=== PATIENT | female | born 1965 | race Caucasian/White ===

== ENCOUNTER 2019-11-28 00:34 | Outpatient (NON) | payer SELFPAY ==
[2019-11-29 00:19] LABS: SARS-CoV-2 RNA PCR Negative
== END 2019-11-28 00:35 ==
PROVIDERS: PCP Family Medicine; Visit Provider Family Medicine
DX: J02.9 Acute pharyngitis, unspecified (principal); Z20.828 Contact with and (suspected) exposure to other viral communicable diseases
CPT/HCPCS: 87635; C9803; U0003

== ENCOUNTER 2021-02-21 13:30 | Outpatient (CLI) | payer OTHER, SELFPAY ==
--- NOTE | ~2021-02-21 | MMUS_ITS ---
EXAMINATION: MM diagnostic [place] BI w jay, US breast RT limited HISTORY: Follow-up right breast asymmetry TECHNIQUE: Additional 3-D tomosynthesis images of the breasts were performed and synthetic 2-D images were generated. CAD analysis was submitted and interpreted. High resolution Limited right breast ult rasound was performed. COMPARISON: Comparison to multiple prior studies sequentially, with oldest reviewed study dated 02/26. BREAST PARENCHYMAL COMPOSITION: The breasts are heterogenously dense, which may obscure small masses. FINDINGS: MAMMOGRAPHIC FINDINGS: There are no suspicious masses, calcifications or architectural distortion in either breast to sugges t malignancy. ULTRASOUND: Limited right breast ultrasound: In the subareolar location of the right breast there is a cyst measu ring 8 mm which may represent a simple cyst or focally dilated duct. No sonographic evidence for hemal gnancy. IMPRESSION: 1. No evidence for malignancy in either breast. 2. Routine yearly screening mammogram and regular clinical breast examination are recommended. BI-RADS Category 2: Benign finding(s). Reviewed, dictated and finalized at location A. IMPRESSION: 1. No evidence for malignancy in either breast. 2. Routine yearly screening mammogram and regular clinical breast examination a re recommended. BI-RADS Category 2: Benign finding(s).
== END 2021-02-21 13:31 | disposition home or self-care (01) ==
LOC: ANHIMG 13:33
PROVIDERS: PCP Family Medicine; Visit Provider Surgery
DX: R92.8 Other abnormal and inconclusive findings on diagnostic imaging of breast (principal)
CPT/HCPCS: 76642; 77062; 77066; G0279

== ENCOUNTER 2021-05-09 13:08 | Outpatient (CLI) | payer OTHER, SELFPAY ==
--- NOTE | ~2021-05-09 | DEXA_ITS ---
Bone Density Report Name: MICHELLE SHARP Age: 56 Sex: Female Ethnicity: White Date of : 1965 Indication: postmenopausal; Referring Provider: JIMMY ROBERT Study: Bone densitometry was performed. Exam Date: May 09, 2021 Accession number: [id number] Bone Density: Region BMD T-score Z-score Classification AP Spine (L1-L4) 1.039 -0.1 0.9 Normal Femoral Neck (Left) 0.656 -1.7 -0.7 Osteopenia Total Hip (Left) 0.864 -0.6 0.0 Normal Total Hip Bilateral Avg 0.880 -0.5 0.2 Normal Femoral Neck (Right) 0.705 -1.3 -0.3 Osteopenia Total Hip (Right) 0.895 -0.4 0.3 Normal World Health Organization criteria for BMD impression classify patients as: Normal (T-score at or above -1.0), Osteopenia (T-score between -1.0 and -2.5), or Osteoporosis (T-score at or below -2.5). 10-year Fracture Risk(1): Major Osteoporotic Fracture 6.3% Hip Fracture 0.6% Reported Risk Factors: [place] (), Neck BMD=0.656, BMI=21.6 (1) FRAX(R) Version 3.08. Fracture probability calculated for an untreated patient. Fracture probability may be lower if the patient has received treatment. Clinical Information Provided by Patient: Has used the following medications: HRT (i.e. estrogen/hormone therapy), Vitamin D Patient maximum height was 55.5 Menopause Age: 54 Does not regularly consume dairy products Drinks caffeinated beverages Onset of menses at age 15 Number of children 3 Impression: The patient has low bone mass, based on the Left Femoral Neck T-score. The patient has an estimated ten-year risk of hip fracture of 0.6% and an estimated ten-year risk of major fracture of 6.3%, based on the WHO FRAX algorithm. Discussion: BONE DENSITY IS LOW AT ONE OR MORE SKELETAL SITES. This patient's lowest T-score is low at one or more skeletal sites. It meets the World Health Organization's (WHO) criteria for ?low bone mass? (T-score between -1.0 and -2.5). The patient's 10-year risk of fracture as calculated by FRAX is less than the threshold where pharmacological therapy is recommended by the National Osteoporosis Foundation (NOF). However, all treatment decisions require clinical judgment and consideration of individual patient factors, including patient preferences, comorbidities, previous drug use, risk factors not captured in the FRAX model (e.g., frailty, falls, vitamin D deficiency, increased bone turnover, interval significant decline in bone density) and possible under or overestimation of fracture risk by FRAX. The patient should follow a healthful lifestyle (good nutrition with adequate calcium and vitamin D, and appropriate weight-bearing exercise). Follow-Up: Consider repeating this study in 2 to 3 years to reassess this patient's status, or sooner if there is some new clinical indication. Reported by: Gabriela
== END 2021-05-09 13:09 | disposition home or self-care (01) ==
PROVIDERS: PCP Family Medicine; Visit Provider Obstetrics & Gynecology Gynecology
DX: Z78.0 Asymptomatic menopausal state (principal); M85.852 Other specified disorders of bone density and structure, left thigh; M85.851 Other specified disorders of bone density and structure, right thigh
CPT/HCPCS: 77080

== ENCOUNTER → 2022-04-27 10:04 | Outpatient (CLI) | payer OTHER, SELFPAY ==
--- NOTE | ~2022-04-27 | US_ITS ---
US renal BI DATE: 04/27/2022 10:25 INDICATION: Left flank colicky pain TECHNIQUE: Real-time imaging of kidneys and urinary bladder COMPARISON: None FINDINGS: The right kidney measures 10.7 cm length, the left 12.6 cm cyst. No renal mass lesion or hy dronephrosis. The urinary bladder is unremarkable. IMPRESSION: No significant abnormality Reviewed, dictated and finalized at Location A. Reviewed, dictated and finalized at location B. 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
== END ==
PROVIDERS: PCP Family Medicine; Visit Provider Family Medicine
DX: R10.9 Unspecified abdominal pain (principal)
CPT/HCPCS: 76775

== ENCOUNTER 2022-08-08 15:49 | Outpatient (CLI) | payer OTHER, SELFPAY ==
--- NOTE | ~2022-08-08 | MM_ITS ---
EXAMINATION: MM screening [place] BI w jay HISTORY: Screening mammogram TECHNIQUE: Craniocaudal and mediolateral oblique 3-D tomosynthesis images were obtained and synthetic 2-D images were generated. CAD analysis was submitted and interpreted. COMPARISON: 02/21/2021 diagnostic bilateral mammogram and limited right breast ultrasound 05/22/2019 bilateral screening mammogram BREAST PARENCHYMAL COMPOSITION: There are scattered areas of fibroglandular density. FINDINGS: There is no evidence of suspicious mass, calcification, or architectural distortion to sugg est malignancy in either breast. There has been no suspicious interval change. IMPRESSION: 1. No mammographic evidence of malignancy. 2. Recommend routine screening mammography in one year. BI-RADS Category 1: Negative Reviewed, dictated and finalized at location A.
== END 2022-08-08 15:50 | disposition home or self-care (01) ==
PROVIDERS: PCP Family Medicine; Visit Provider Obstetrics & Gynecology Gynecology
DX: Z12.31 Encounter for screening mammogram for malignant neoplasm of breast (principal)
CPT/HCPCS: 77063; 77067

== ENCOUNTER 2023-10-02 16:04 | Outpatient (CLI) | payer OTHER, SELFPAY ==
--- NOTE | ~2023-10-02 | MM_ITS ---
EXAMINATION: MM screening [place] BI w jay HISTORY: Screening mammogram TECHNIQUE: Craniocaudal and mediolateral oblique 3-D tomosynthesis images were obtained and synthetic 2-D images were generated. CAD analysis was submitted and interpreted. COMPARISON: 08/08/2022 bilateral screening mammogram 02/21/2021 diagnostic bilateral mammogram and limited right breast ultrasound 05/22/2019 [facility] bilateral screening mammogram BREAST PARENCHYMAL COMPOSITION: There are scattered areas of fibroglandular density. FINDINGS: Occasional benign calcifications. There is no evidence of suspicious mass, calcification, o r architectural distortion to suggest malignancy in either breast. There has been no suspicious inter misti change. IMPRESSION: 1. No mammographic evidence of malignancy. 2. Recommend routine screening mammography in one year. BI-RADS Category 2: Benign finding(s). Reviewed, dictated and finalized at location B.
== END 2023-10-02 16:05 ==
PROVIDERS: PCP Obstetrics & Gynecology Gynecology; Visit Provider Obstetrics & Gynecology Gynecology
DX: Z12.31 Encounter for screening mammogram for malignant neoplasm of breast (principal)
CPT/HCPCS: 77063; 77067

== ENCOUNTER 2024-10-06 14:15 | Outpatient (CLI) | payer OTHER, SELFPAY ==
--- NOTE | ~2024-10-06 | MM_ITS ---
EXAMINATION: MM screening [facility] BI w jay HISTORY: Screening mammogram TECHNIQUE: Craniocaudal and mediolateral oblique 3-D tomosynthesis images were obtained and synthetic 2-D images were generated. CAD analysis was submitted and interpreted. COMPARISON: 10/02/2023, 08/08/2022, 02/21/2021 BREAST PARENCHYMAL COMPOSITION:Not Dense. There are scattered areas of fibroglandular density. FINDINGS: No suspicious mass, calcification, or architectural distortion are identified in either janell ast to suggest malignancy. There has been no suspicious interval change. IMPRESSION: No mammographic evidence of malignancy. Recommend routine screening mammography in one year. BI-RADS Category 1: Negative Reviewed, dictated and finalized at location .
--- NOTE | ~2024-10-06 | DEXA_ITS ---
Bone Density Report Name: MICHELLE SHARP Age: 59 Sex: Female Ethnicity: White Date of : 1965 Indication: postmenopausal; screening for osteoporosis; height loss; Referring Provider: ROXANNE HICKMAN Study: Bone densitometry was performed. Exam Date: October 06, 2024 Accession number: [id number] Bone Density: Region BMD T-score Z-score Classification AP Spine(L1-L4) 1.104 0.5 1.8 Normal Femoral Neck (Left) 0.644 -1.8 -0.7 Osteopenia Total Hip (Left) 0.863 -0.6 0.2 Normal Femoral Neck (Right) 0.725 -1.1 0.1 Osteopenia Total Hip (Right) 0.923 -0.2 0.7 Normal Total Hip Mean 0.893 -0.4 0.5 Normal World Health Organization criteria for BMD impression classify patients as: Normal (T-score at or above -1.0), Osteopenia (T-score between -1.0 and -2.5), or Osteoporosis (T-score at or below -2.5). 10-year Fracture Risk(1): Major Osteoporotic Fracture 8.3% Hip Fracture 0.9% Reported Risk Factors: [place] (), Neck BMD=0.644, BMI=24.6 (1) FRAX(R) Version 3.08. Fracture probability calculated for an untreated patient. Fracture probability may be lower if the patient has received treatment. Previous Exams: Region Exam Age BMD T-score BMD Change BMD Change Date g/cm2 vs Baseline vs Previous AP Spine (L1-L4) 10/06/2024 59 1.104 0.5 0.065 (6.3%)# 0.065 (6.3%)# 05/09/2021 56 1.039 -0.1 Total Hip(Left) 10/06/2024 59 0.863 -0.6 0.000 (0.0%)# 0.000 (0.0%)# 05/09/2021 56 0.864 -0.6 Total Hip(Right) 10/06/2024 59 0.923 -0.2 0.028 (3.1%)# 0.028 (3.1%)# 05/09/2021 56 0.895 -0.4 *Denotes significance at 95% confidence level, LSC for AP Spine = 0.022 g/cm2, LSC for Total Hip = 0.027 g/cm2 # Denotes dissimilar scan types or analysis methods Clinical Information Provided by Patient: Has used the following medications: HRT (i.e. estrogen/hormone therapy), Vitamin D Patient maximum height was 66 Menopause Age: 54 No regular weight bearing exercise Does not regularly consume dairy products Drinks caffeinated beverages Onset of menses at age 15 Number of children 3 Impression: The patient has low bone mass, based on the Left Femoral Neck T-score. The patient has an estimated ten-year risk of hip fracture of 0.9% and an estimated ten-year risk of major fracture of 8.3%, based on the WHO FRAX algorithm. No significant bone loss was observed. Discussion: BONE DENSITY IS LOW AT ONE OR MORE SKELETAL SITES. This patient's lowest T-score is low at one or more skeletal sites. It meets the World Health Organization's (WHO) criteria for ?low bone mass? (T-score between -1.0 and -2.5). The patient's 10-year risk of fracture as calculated by FRAX is less than the threshold where pharmacological therapy is recommended by the National Osteoporosis Foundation (NOF). However, all treatment decisions require clinical judgment and consideration of individual patient factors, including patient preferences, comorbidities, previous drug use, risk factors not captured in the FRAX model (e.g., frailty, falls, vitamin D deficiency, increased bone turnover, interval significant decline in bone density) and possible under or overestimation of fracture risk by FRAX. The patient should follow a healthful lifestyle (good nutrition with adequate calcium and vitamin D, and appropriate weight-bearing exercise). Follow-Up: Consider repeating this study in 2 to 3 years to reassess this patient's status, or sooner if there is some new clinical indication. Reported by: ÁNGELA on 10/06/2024 3:07:00 PM. Reviewed, dictated and finalized at location A.
--- OUTSIDE RECORDS SUMMARY | 2024-10-06 14:20 | XMS_ITS | Data Portability ---
Author Organization [facility] - [facility], PPatriciaCPatricia, [facility] Address [address] [place] [address] Assessment No assessment recorded. Plan of Treatment Reminders Order Date Submit Date Provider Last Modified By Organization Details Last Modified Time Details Appointments None recorded. Lab stool examinatio n - GI Effects 3 day -- Stool 2021 022 amalic Not available 2 08:13:25 organic acids panel, urine - [place] [facility] - Urine 2021 022 amalic Not available 2 07:48:44 Referral None recorded. Procedures None recorded. Surgeries None recorded. Imaging None recorded. Medication Orders ketoconazo le 200 mg tablet 2023 024 [facility] [address] [place], [address], 4 18:00:08 ketoconazo le 200 mg tablet 2022 023 [facility] [address] [place], [address], 3 23:09:03 OrthoBioti c 2021 022 [facility] [address] [place], [address], 3 16:07:11 Biocidin 2021 022 [facility] [address] [place], [address], 3 16:07:06 fluconazol e 200 mg tablet 2021 022 [facility] [address] [place], [address], 3 16:07:14 OrthoBioti c 2021 022 [facility] [address] [place], [address], 3 16:07:11 Biocidin 2021 022 [facility] [address] [place], [address], 3 16:07:06 fluconazol e 200 mg tablet 2021 022 [facility] [address] [place], [address], 3 16:07:14 OrthoBioti c 2021 022 [facility] [address] [place], [address], 3 16:07:11 Biocidin 2021 022 [facility] [address] [place], [address], 3 16:07:06 Patient TargetsNo targets recorded. Patient Instructions Encounter Date Encounter Id Patient Instructions Last Modified By Organization Details Last Modified Time 09/29/2021 [id number] candidiasis: car e instructions cwessling Not available 09/29/2021 16:34:44 07/17/2022 [id number] Ketoconazole - take 1 tablet once weekly Metagenics Women's Probiotic 1 capsule daily. Continue with Orthobiotic 1 capsule daily For Sleep - Cerenity PM - 2 - 4 capsules before bed. Once you are sleeping through, you can try to reduce the dose by 1 capsule before bed Licorice Plus 1 in the morning and 1 at noon to support your energy, stress levels and mood You can come in for Alfredo's Cocktail every other week to help with your energy level When you have a flare, then take Ketoconazole daily and Biocidin 8 drops twice daily cwillbrand Not available 07/17/2022 17:19:11 06/25/2023 [id number] Silicea 12c 4 pellets 2 -3 times per day for the next 2 weeks Take Ketoconazole for 1 week now and then return to 1 twice weekly. After the implant and taking another round of antibiotics, take ketoconazole for 2 weeks, then return to twice weekly. Pure Encapsulations Capryllic Acid 500mg daily or NOW Capryllic Acid 500mg daily. Take ongoing to further help with overgrowth of yeast. NAC 500 - 600mg twice daily GI Detox - 1 capsule daily - at least 1 hour away from taking other supplements cwillbrand Not available 06/25/2023 11:52:46 Reason for Referral None Reported. Results Created Date Observation Date Name Description Value Unit Range Abnormal Flag Note LastModifiedBy Organization Detail LastModifiedTime 08/30/19 22 08/29/2021 urina lysis , dipst ick Leukocytes Trace Not Available In-Hous e Results For Internal Use Only, Do Not Delete/merge, [id number] 08/29/2021 13:51:52 08/30/19 22 08/29/2021 urina lysis , dipst ick Nitrite negati ve Not Available In-House Results For Internal Use Only, Do Not Delete/merge, [id number] 08/29/2021 13:51:52 08/30/19 22 08/29/2021 urina lysis , dipst ick Protein Trace Not Available In-House Results For Internal Use Only, Do Not Delete/merge, [id number] 08/29/2021 13:51:52 08/30/19 22 08/29/2021 urina lysis , dipst ick pH 8.0 Not Available In-House Results For Internal Use Only, Do Not Delete/merge, [id number] 08/29/2021 13:51:52 08/30/19 22 08/29/2021 urina lysis , dipst ick Blood Non-He molyze d: Trace Not Available In-House Results For Internal Use Only, Do Not Delete/merge, [id number] 08/29/2021 13:51:52 08/30/19 22 08/29/2021 urina lysis , dipst ick Ketone Negati ve Not Available In-House Results For Internal Use Only, Do Not Delete/merge, [id number] 08/29/2021 13:51:52 08/30/19 22 08/29/2021 urina lysis , dipst ick Glucose Negati ve Not Available In-House Results For Internal Use Only, Do Not Delete/merge, [id number] 08/29/2021 13:51:52 08/30/19 22 08/29/2021 urina lysis , dipst ick Appearance Clear Not Available In-Hous e Results For Internal Use Only, Do Not Delete/merge, [id number] 08/29/2021 13:51:52 08/30/19 22 08/29/2021 urina lysis , dipst ick Color Yellow Not Available In-House Results For Internal Use Only, Do Not Delete/merge, [id number] 08/29/2021 13:51:52 Result Notes None recorded. 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 15:38:00 Menopause present 104567325 Active 2020 Aroldo Tavares MD [address] [place] [address], [address] , [facility] 15:38:01 Kyphosis deformity of spine 322609459 Active 2020 Aroldo Tavares MD [address] [place] [address], [address] , [facility] 15:38:03 Acquired pes planus 972653479 Active 2020 Aroldo Tavares MD [address] [place] [address], [address] , [facility] 15:38:04 Recurrent urinary tract infection 912728803 Active 2020 Aroldo Tavares MD [address] [place] [address], [address] , [facility] 15:38:06 Candidiasis 55775085 Active 2020 Aroldo Tavares MD [address] [place] [address], [address] , [facility] 15:38:07 Infection caused by Klebsiella 959284788 Active 2020 Aroldo Tavares MD [address] [place] [address], [address] , [facility] 14:23:26 Vertigo 956643971 Active 2020 Aroldo Tavares MD [address] [place] [address], [address] , [facility] 14:26:38 Allergy to food 167047889 Active 2020 Aroldo Tavares MD [address] [place] [address], [address] , [facility] 14:26:39 Insomnia 946198251 Active 2022 Sue Thomas [address] [place] [address], [address] , [facility] 3 17:12:05 Menopause Active 2022 Sue Thomas [address] [place] [address], [address] , [facility] 3 17:12:34 Problem Notes None recorded. Medical Equipment None Reported. Allergies Allergen ID Allergen Name Allergen Category Reaction Reaction Severity Criticality Documentation Date Start Date Code Code System Note Provider Name and Address Organization Details Recorded Time 88953 Product containin g penicilli n (product) medicatio n Not available Not available Not available 02/28/2021 11143 8001 SNOMED [facility] 14:26:28 Medications Name Sig Start Date Stop Date Status Note LastModified by Organization Details LastModified Time OrthoBiotic 2 qd 2020 active Not Available Not Available Not Avai lable OrthoBiotic 2 qd 07/17 completed Not Available Not Available Not Available OrthoBiotic 2 qd 2020 active Not Available Not Available Not Avai lable Biocidin 5 drops bid 07/17 completed Not Available Not Available Not Available Biocidin 5 drops bid 2021 active Not Available Not Available Not Avai lable OrthoBiotic 2 qd 2021 active Not Available Not Available Not Avai lable Biocidin 5 drops bid 2020 active Not Available Not Available Not Avai lable Betaine Pepsin HCl 2 tid with meals 01/09 completed Not Available Not Available Not Available OrthoBiotic 2 qd 2021 active Not Available Not Available Not Avai lable Biocidin 5 drops bid 2021 active Not Available Not Available Not Avai lable tetracyclin e 500 mg capsule Take 1 capsule twice a day by oral route. 06/20 completed Not Available Not Available Not Available ketoconazol e 200 mg tablet TAKE 1 TABLET BY MOUTH ONCE DAILY active Not Available Not Available No t Available benzonatate 200 mg capsule TAKE 1 CAPSULE BY MOUTH THREE TIMES DAILY NEEDED FOR COUGH 01/09 completed Not Available Not Available Not Available valacyclovi r 1 gram tablet Take 1 tablet as needed by oral route. active Not Available Not Available No t Available hydrocodone 5 mg-acetamin ophen 325 mg tablet TAKE 1 TABLET BY MOUTH EVERY 6 HOURS NEEDED FOR PAIN 02/28 completed Not Available Not Available Not Available fluconazole 200 mg tablet one tablet per day for one week, then one twice weekly 07/17 completed Not Available Not Available Not Available phenazopyri dine 200 mg tablet TAKE 1 TABLET BY MOUTH EVERY 6 HOURS NEEDED FOR PAIN 06/25 completed Not Available Not Available Not Available famotidine 40 mg tablet TAKE 1 TABLET BY MOUTH AT BEDTIME 02/28 completed Not Available Not Available Not Available clobetasol 0.05 % topical cream APPLY CREAM TOPICALLY TO AFFECTED AREA TWICE DAILY ON HANDS NEEDED active Not Available Not Available No t Available clindamycin HCl 150 mg capsule TAKE 1 CAPSULE BY MOUTH EVERY 6 HOURS 06/25 completed Not Available Not Available Not Available diphenoxyla te-atropine 2.5 mg-0.025 mg tablet TAKE 1 TO 2 TABLETS BY MOUTH 4 TIMES DAILY NEEDED FOR DIARRHEA. BE CAREFUL WITH DRIVING 02/28 completed Not Available Not Available Not Available acetaminoph en 300 mg-codeine 30 mg tablet TAKE 1 TO 2 TABLETS BY MOUTH EVERY 6 HOURS NEEDED WITH FOOD FOR PAIN 06/25 completed Not Available Not Available Not Available ciprofloxac in 500 mg tablet TAKE 1 TABLET BY MOUTH TWICE DAILY 06/25 completed Not Available Not Available Not Available ketorolac 10 mg tablet TAKE 2 TABLETS BY MOUTH FOR 1ST DOSE THEN 1 TAB EVERY 6 HOURS NEEDED FOR PAIN FOR 5 DAYS 07/17 completed Not Available Not Available Not Available alprazolam 0.5 mg tablet 02/28 completed Not Available Not Available Not Available benzonatate 100 mg capsule TAKE 1 TO 2 CAPSULES BY MOUTH EVERY 8 HOURS NEEDED FOR COUGH 06/25 completed Not Available Not Available Not Available cephalexin 500 mg capsule 02/28 completed Not Available Not Available Not Available clotrimazol e-betametha sone 1 %-0.05 % topical cream APPLY CREAM TOPICALLY TO AFFECTED AREA TWICE DAILY 02/28 completed Not Available Not Available Not Available betamethaso ne dipropionat e 0.05 % topical cream APPLY CREAM TOPICALLY TO HANDS TWICE DAILY NEEDED. active Not Available Not Available No t Available hydrocortis one 10 mg tablet TAKE 1 TABLET BY MOUTH ONCE DAILY IN THE MORNING. CAN TAKE 1/2 TABLET AT NOON IF NEEDED. 06/25 completed Not Available Not Available Not Available ibuprofen 600 mg tablet TAKE 1 TABLET BY MOUTH EVERY 6 HOURS NEEDED WITH FOOD FOR PAIN 06/25 completed Not Available Not Available Not Available estradiol 0.01% (0.1 mg/gram) vaginal cream INSERT ONE GRAM INTO VAGINA AT BEDTIME TWICE A WEEK. 06/25 completed Not Available Not Available Not Available methylpredn isolone 4 mg tablets in a dose pack TAKE BY MOUTH DIRECTED ON INSIDE OF PACKAGE 02/28 completed Not Available Not Available Not Available cefdinir 300 mg capsule TAKE 1 CAPSULE BY MOUTH EVERY 12 HOURS 06/25 completed Not Available Not Available Not Available progesteron e micronized 100 mg capsule TAKE 1 CAPSULE BY MOUTH ONCE DAILY AT BEDTIME FOR 3 WEEKS, THEN TAKE 1 WEEK OFF active Not Available Not Available No t Available nitrofurant oin monohydrate /macrocryst als 100 mg capsule TAKE ONE CAPSULE BY MOUTH AFTER INTERCOUR SE PROFALACT IC TREATMENT FOR PREVENTIO N OF UTIS active Not Available Not Available No t Available END PACKER Thyroid 30 mg tablet TAKE 1 TABLET BY MOUTH IN THE MORNING AND IN THE EVENING ON AN EMPTY STOMACH 30 MINUTES active Not Available Not Available No t Available END PACKER Thyroid 60 mg tablet TAKE 1 TABLET BY MOUTH ONCE DAILY IN THE MORNING ON EMPTY STOMACH. DO NOT EAT FOR 30 MINUTES AFTER TAKING. 06/25 completed Not Available Not Available Not Available nitrofurant oin 100 mg tablet Take 1 tablet every day by oral route as needed. 06/25 completed Not Available Not Available Not Available Hayde 0.1 mg/24 hr transdermal patch APPLY 1 PATCH TOPICALLY TWICE A WEEK; NO DAYS OFF active Not Available Not Available No t Available Hayde 0.075 mg/24 hr transdermal patch APPLY 1 PATCH TOPICALLY ONCE A WEEK CONTINUAL LY. NO DAYS OFF. 06/20 completed Not Available Not Available Not Available AbiodunaxNOW COVID-19 Ag Self Test kit Use as Directed on the Package 07/17 completed Not Available Not Available Not Available Paxlovid 300 mg (150 mg x 2)-100 mg tablets in a dose pack TAKE 3 TABLETS TOGETHER (TWO 150 MG NIRMATREL VIR TABLETS AND ONE 100 MG RITONAVIR TABLET) BY MOUTH TWICE DAILY FOR 5 DAYS. 01/09 completed Not Available Not Available Not Available Vitals Date Recorded Body height Body temperature Body mass index (BMI) Body weight Heart rate Systolic blood pressure Diastolic blood pressure Provider Name and Address Organization Details Last Updated DateTime 2 165.1 cm 97.2 [degF] 21.6 kg/m2 69758.0 1 g 73 /min 113 mm[Hg] 77 mm[Hg] Saulo Rivas [facility] 2 14:52:08 Date Recorded Body height Body mass index (BMI) Body weight Body temperature Heart rate Systolic blood pressure Diastolic blood pressure Provider Name and Address Organization Details Last Updated DateTime 2 165.1 cm 22.1 kg/m2 20861.7 9 g 97.9 [degF] 80 /min 112 mm[Hg] 72 mm[Hg] Saulo [facility] 2 15:42:56 Date Recorded Body height Body mass index (BMI) Body weight Heart rate Body temperature Systolic blood pressure Diastolic blood pressure Provider Name and Address Organization Details Last Updated DateTime 2 165.1 cm 22.5 kg/m2 42995.9 7 g 80 /min 97.9 [degF] 100 mm[Hg] 67 mm[Hg] Veronika Perez [facility] 2 10:05:48 Date Recorded Body height Body mass index (BMI) Body weight Heart rate Body temperature Systolic blood pressure Diastolic blood pressure Provider Name and Address Organization Details Last Updated DateTime 3 165.1 cm 22.8 kg/m2 19677.1 5 g 86 /min 97.7 [degF] 115 mm[Hg] 70 mm[Hg] [facility] 3 16:05:24 Date Recorded Body height Body mass index (BMI) Body weight Body temperature Heart rate Systolic blood pressure Diastolic blood pressure Provider Name and Address Organization Details Last Updated DateTime 4 165.1 cm 23 kg/m2 39375.1 8 g 97.7 [degF] 80 /min 105 mm[Hg] 69 mm[Hg] [facility] 4 11:11:01 Social History None recorded. Functional Status None recorded. Mental Status None recorded. Family History Relationship Description Onset Age of this Age Resolved Age Notes LastModified by Organization Details LastModified Time Mother Malignant tumor of breast amalic Not available 2020 14:32:45 Father Malignant neoplasm of prostate amalic Not available 2020 14:32:53 Medical History Condition Response Coronary Artery Disease N Gout N Kidney Stones N Blood Diseases N Hyperthyroidism N Depression N COPD N Hypothyroidism N Developmental or Behavioral Disorders N Anxiety Disorder N Muscle, Joint, or Bone Problems N Vision or Eye Problems N Arthritis N Head Injury/Concussion N Congenital Anomalies N Cancer N Stroke N ADHD N Bladder or Kidney Problems N Hospital Admission other than N High Cholesterol N Liver Disease N Headaches N Fibromyalgia N Kidney Disease N Ear or Hearing Problems N Thyroid Problems Y Skin Problems N Anemia N Constipation N Mental Illness N Diabetes N Bedwetting N Seizures/Epilepsy N Heart Problems/Murmur N Tuberculosis N Diverticulitis N Asthma N Allergies N Reflux/GERD N Heart Disease N Pulmonary Embolism N Hypertension N Chicken Pox Y Autism Spectrum Disorder (ASD) N Osteoporosis N Gynecological HistoryNo gynecological history recorded. Obstetrics History GPAL:G 0 P 0 0 0 0 Immunizations Vaccine Type Date Status Note Provider Nam e and Address Organization Details Recorded Time COVID-19, mRNA, LNP-S, PF, 100 mcg/0.5mL dose or 50 mcg/0.25mL dose 1 completed Aroldo Tavares MD [address] [place] [address], [address], [facility] 04/18/2021 14:13:57 COVID-19, mRNA, LNP-S, PF, 100 mcg/0.5mL dose or 50 mcg/0.25mL dose 1 completed Aroldo Tavares MD [address] [place] [address], [address], [facility] 04/18/2021 14:14:13 Influenza, split virus, quadrivalent, preservative 1 completed Aroldo Tavares MD [address] [place] [address], [address], [facility] 04/18/2021 14:15:10 zoster recombinant 1 completed Aroldo Tavares MD [address] [place] [address], [address], [facility] 04/18/2021 14:16:16 zoster recombinant 1 completed Aroldo Tavarse MD [address] [place] [address], [address], [facility] 04/18/2021 14:18:02 Past Encounters Encounter ID Performer Location Encounter Start Date Encounter Closed Date Diagnosis/Indication Diagnosis SNOMED-CT Code Diagnosis ICD10 Code Diagnosis Note [id number] Aroldo Tavares MD Main Office [address] [place] [address] 02/28/2021 14:06:05 02/28/2021 15:54:11 Flatulent dyspepsia 108634523 K30 Menopause present 915508 006 N95.1 Kyphosis d eformity of spine 468383235 M40.209 Acquired pes planus 2035 86391 M21.40 Recurrent urinary tract infection 308176113 N39.0 Candidiasis 21075384 B37 .9 Vertigo 386267746 R42 [id number] Aroldo Tavares MD Main Office [address] [place] [address] 04/18/2021 12:57:09 04/18/2021 14:43:22 Flatulent dyspepsia 485863194 K30 Menopause present 405262 006 N95.1 Kyphosis d eformity of spine 838776724 M40.209 Acquired pes planus 2035 45359 M21.40 Recurrent urinary tract infection 660867015 N39.0 Candidiasis 75620801 B37 .9 Vertigo 699501479 R42 Allergy to food 56426707 1 Z91.018 dairy, onion Infection caused by Klebsiella 451879816 A49.8 Insomnia 556169223 G47.0 9 [id number] Aroldo Tavares MD Main Office [address] [place] [address] 06/20/2021 14:39:14 06/20/2021 16:12:03 Flatulent dyspepsia 620946115 K30 Menopause present 382901 006 N95.1 Kyphosis d eformity of spine 163261108 M40.209 Acquired pes planus 2035 30511 M21.40 Recurrent urinary tract infection 817052718 N39.0 Candidiasis 81662311 B37 .9 Vertigo 447816699 R42 Allergy to food 15532685 1 Z91.018 dairy, onion Infection caused by Klebsiella 741257573 A49.8 Insomnia 361183889 G47.0 9 [id number] Aroldo Tavares MD Main Office [address] [place], [place] [address] 09/29/2021 15:41:26 09/29/2021 16:39:47 Flatulent dyspepsia 742066348 K30 Menopause present 685460 006 N95.1 Kyphosis d eformity of spine 650677948 M40.209 Acquired pes planus 2035 38071 M21.40 Recurrent urinary tract infection 526914906 N39.0 Candidiasis 41077979 B37 .9 Vertigo 976347203 R42 Allergy to food 84640863 1 Z91.018 dairy, onion Infection caused by Klebsiella 151524206 A49.8 Insomnia 438422350 G47.0 9 Hypothyroidism 33988662 E03.9 [id number] Aroldo Tavares MD Main Office [address] [place] [address] 01/09/2022 10:03:24 01/09/2022 11:10:44 Flatulent dyspepsia 149121800 K30 Menopause present 782057 006 N95.1 Kyphosis d eformity of spine 301065089 M40.209 Acquired pes planus 2035 19590 M21.40 Recurrent urinary tract infection 962873007 N39.0 Candidiasis 26147655 B37 .9 Vertigo 684048167 R42 Allergy to food 31679014 1 Z91.018 dairy, onion Infection caused by Klebsiella 954916232 A49.8 Insomnia 873830968 G47.0 9 Hypothyroidism 03897966 E03.9 [id number] Aroldo Tavares MD Main Office [address] [place] [address] 07/17/2022 16:01:45 07/17/2022 17:29:36 Candidiasis 98967966 B37.9 Insomnia 891691016 G47.0 0 Menopause 201423082 N95. 1 Recurrent urinary tract infection 211016884 N39.0 Hormone re placement therapy 287349347 Z79.890 [id number] Aroldo Tavares MD Main Office [address] [place] [address] 06/25/2023 11:08:50 06/25/2023 11:57:57 Atopic dermatitis 27077433 L20.9 Candidiasis 55706634 B37 .9 Menopause present 207544 006 N95.1 Hormone re placement therapy 655770993 Z79.890 Health Concerns Section Related Observation LastModified by Organization Detai ls LastModified Time None Recorded Concern Status LastModified by Organization Details LastModified Time None Recorded Advance Directives Directive None Recorded Payers Encounter Date Sequence Insurance Name Policy Number Policy Teague Covered Member ID Teague Member ID Guarantor Name 06/20/2021 1 [employer] ([employer]O) [id number] Arno Sponeman [id number] Jayne Tiera Sponeman 09/29/2021 1 [employer] (PPO) [id number] Arno Sponeman [id number] Jayne Tiera Sponeman 01/09/2022 1 [employer] (PPO) [id number] Arno Sponeman [id number] Jayne Tiera Sponeman 07/17/2022 1 [employer]MR (PPO) [id number] Arno Sponeman [id number] Jayne Tiera Sponeman 06/25/2023 1 [employer] (PPO) [id number] Arno Sponeman [id number] Jayne Tiera Sponeman Notes Date Note Type Note Provider Name and Address Organization Details Recorded Time 06/20/2021 text/html Slowlyless cramp ing and bloating. Certainly not the hard bloat.Not diarrhea as in past. follow upOff dairy and onion Aroldo Tavares MD [address] [place], [address], [facility] 06/20/2021 16:08:49 09/29/2021 text/html 60% better - not the diarrhea or horrible stomach pains - stools way better.Less bloating but still some.08/29/2021 dysuria with negative urinalysis.Strictly avoids dairy only occ. hard cheese in small quantity is tolerate.Recent Macrobid for UTI. Still has burning off and on in genital areaMild discomfort with intercourseNo discharge.Diflucan helped.Denies exposure to moldy car or house. Hers is 15 years old and not musty. Did not tolerate Betain pepsin. Lamar 30 per Chris Streeter Slowlyless cramping and bloating. Certainly not the hard bloat.Not diarrhea as in past.follow upOff dairy and onionStomach problemsstarted 09/2020 - after 5 rounds of Clindamycin and Cipro between March and May, for dental implant which was successful.Referred by Amanda Sybil whom she sees for chronic TMJ.10/15 diarrhea stomach cramps. Bloating with cramp whenever eats. Gas pain gurgling.Fullness immediately after eating. recommended off probiotics, and start GasXwhich did not help.stools were light and disintegrated. Passes flatus.Saw Mark Yang MD nat instructor. Recommended Align.11/2020 Ketoconazole helped, by Chris Streeter MD.<Also started Iberogast.2016 bad yeast vaginally for a year. 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 3 daughters A 16, 22, 28. Youngest is difficult child an source ome stress. Family lives in [place].Took END PACKER 30 mg in past.Mid back pain due to chronic kyphosis. always had it Uses Advil or Tylenol about 3xa week.Wakes during night about 4 am then cannot return to sleep. Only gets 6 - 6.5 hours of sleep instead of 8.Testosterone pellets and estrogen patch.Vertigo attack 2-3 years ago. Damaris maneuvers helped. Eye exercises help. Aroldo Tavares MD [address] [place], [address], [facility] 09/29/2021 16:36:04 01/09/2022 text/html Mostly betterFluconazole helped settle stomach - overall 80% better.Trip to [place] - Ate whatever and did well with it.Then, after her return here, after eating hamburger and fries, had recurrence of stomach cramps, bloating and soft frequent painful stools, which improved after taking 2 more doses of fluconazole. Feels like she backslid to about 50% improvement.Avoiding dairy and onion based on IgG food sensitivity testing. Aroldo Tavares MD [address] [place], [address], [facility] 01/09/2022 11:04:44 07/17/2022 text/html Jayne is here today to discuss chronic issues.GI - she had taken 5 rounds of antibiotics in May.Her BM are 7 - 8/10. Times when she can have a stomach ache and the following day she will have to eat mild. She can tell dairy is a problem. Occassionally she will have cheese. She can tell sugar affects her. She likes to eat chocolate and times when it is ok and other times not. Some days she will have a glass of wine and her stomach will hurt. She followed the cassie diet for 6 months straight and she felt good. Now it is finally starting to get better.February 2022. She had a relapse with her gut. The first year it was horrible. It would improve and come back. Her flare would be bloating like a balloon and then bad stomach cramps. Her BM would be soft and burning. A flare would last for 3 - 4 days. She has been using Iberogast. Gasx after every meal. She would also use Fluconazole for 4 -5 days. She took ketoconazole in the past and she felt it was better than the fluconazole. She is currently taking Orthobiotic 1 capsule daily. She will have a BM daily or every other day. 80% of the time it is daily. Now it is formed and looks good. She has had a resurgence of UTIs recently. She recently start [place]. She had had some problems sleeping and low energy. Her last UTI was 4 months ago. This has been better. She using an estrogen patch. She doesn't feel she has vaginal dryness. She sees Josafat Streeter for hormones. She feels her hormones are balanced well. The progesterone helps her sleep a little better at night. Her energy level is 25% better with the hormones. She does feel tired. Her energy dropped year ago. She had an ablation in the past. She feels her energy level has been low for 8 - 10 years. Sleep - she falls asleep easily and sleeps for 5 - 6 hours. She then has a difficult time going back to sleep. She goes to bed around 10pm and she will wake at 3 -4 am. She will get up and go and then she will hold it. Her mind will start racing. She worries about her daughter and her mom. Her mom is aging.She can only sleep on her left side. She gets uncomfortable and sore. Her snores.She feels tired upon waking in the morning. She is a morning person. 8 - 10am is the best time of day for her birthday. She will take a nap in the afternoon which will help some with her energy. She feels groggy upon waking. She works 3 days per week. She can feel she will start to fall asleep at the computer. She will only have caffeine in the morning. She feels very hungry with caffeine in the morning. After lunch, she will drink one cup of coffee and she feels a little better. She feels tired upon getting home from work. She cooks dinner and she will walk the dogs after dinner. As a child, her health was good. No digestive problems as child. She grew up in [place].She had UTIs in her 20s. Acne in teen years and she took antibiotics.At the age of 42, she was diagnosed with TMJ. Her MRI showed that right TMJ was gone. She now has 8 crowns. She sees Ronald Maher - This occurred in 2020. She had to do bone grafting for the dental implants. She had vertigo also with the TMJ. A couple of times the ear crystal went out and she did vision exercises which was very helpful. She was on a lot of pain pills in her 40s due to the chronic pain. Mood - fluctuates. She has a challenging 17 year old. She exhausts her mentally. Her mood is based upon how things are going with her. 3 children - 28, 23, 17. All girls. The two older are out of the house. Oldest is in [place]. Middle daughter is in [place] for Grad school. She worries a lot of about how she will do in college. Aroldo Tavares MD [address] [facility], [place], [id number], [place] - [facility] 07/20/2022 22:47:42 06/25/2023 text/html Jayne is here today for follow up -She had oral surgery March 01 and had to take antibiotics for 5 -6 weeks. Then April she was sick with a virus with stomach issues. She hasn't felt right for 1 week after this.After getting sick in April, she had bloating, cramping and loose stool. After 3 days of this, she took Ketoconazole daily for 2 weeks - May 27 - June 10. Now she is taking Ketoconazole twice weekly. Today she has a bad stomach ache. It comes and goes. She has itchy rectum at times. She also has painful, peeling and cracking of her fingertips. It doesn't occur just in the winter. It is year round. She has had this for 1 1/2 years. It can bleed and she will put neosporin on it. When the skin grows back it is thick and crusty.She is currently taking the Orthobiotic 1 twice daily. Aroldo Tavares MD [address] [place], [id number], [facility] 06/25/2023 20:51:34 OBGyn Episode No OBEpisode recorded.
--- OUTSIDE RECORDS SUMMARY | 2024-10-06 14:20 | XMS_ITS | Data Portability ---
Author Organization [place] - [facility] [place], Main Office Address [address] [place] [address] Assessment Encounter Date Assessment Date Assessment LastModified by Organization Details LastModified Time 02/26/2023 02/26/2023 Assessment: Moderate OSAHS, AHI = 22 PLMD Hypoventilation Plan: The following were reviewed and explained to the patient: primary care/referral note [facility] home sleep study 02/19/23 AHI = 22, supine AHI = 46 General information on sleep disordered breathing, evaluation of sleep disordered breathing, treatment with PAP therapy, and living with PAP therapy were covered. PSG is medically necessary to determine the management of sleep apnea. We discussed with the patient the impact of weight on: Sleep disordered breathing We discussed with the patient the benefit of PAP therapy on: Sleep disordered breathing Rhinitis Educated the patient on sleep hygiene measures. Relaxing rituals to rest easy, understanding foods with positive and negative impact on sleep, creating a peaceful sleep environment, timing of exercise, using herbal sleep aids, and practicing sleep-friendly meditation were covered. To determine how much sleep is needed, the patient will assess where she falls on the spectrum, examine what lifestyle factors such as work schedules and stress are affecting the quality and quantity of sleep. In general, adults need 7-9 hours of sleep. Educated the patient regarding foods that promote sleep. These include but are not limited to cherries, bananas, toast, oatmeal, and warm milk. Educated the patient regarding foods and drinks to avoid before bedtime. These include but are not limited to aged cheese, chocolate, spicy foods, tomato-based sauces, soy, ginseng tea and processed meat. Advocated influenza vaccination annually and pneumonia vaccination in 2031. Advocated weight loss through diet and exercise. Patient's ideal body weight according to height and gender is up to 135 lbs. Encouraged patient to adjust caloric intake to maintain/achieve ideal body weight, emphasizing on fruits, vegetables, whole grains, and fat-free or low-fat products. These include lean meats, poultry, fish, beans, eggs, and nuts and foods that are low in saturated fats, trans-fats, cholesterol, salt (sodium), and glycemic index. Stressed the importance of regular exercise up to the patient's capacity limits. In this case, we recommend 20 min daily walking, 2 days a week of resistance training. Patient to monitor BP daily and bring records to PCP for further management. Follow-up: 1 week after titration sleep study Not available 02/26/2023 09:46:00 06/04/2023 06/04/2023 Assessment: Moderate OSAHS, AHI = 22 Plan: The following were reviewed and explained to the patient: [facility] home sleep study 02/19/23 AHI = 22, supine AHI = 46 [facility] titration sleep study 04/17/23 Respironics medium DreamWear full face mask @ 7-20 cmH2O Educated the patient on problems and solutions associated with positive airway pressure (PAP) use. Difficulty tolerating pressure, mask leaks, intolerance of interface, nasal congestion, claustrophobic response, dry mouth, and unintentional mask removal during sleep were covered. Patient has some difficulty tolerating pressure. Patient is advised to practice wearing PAP daily while awake, lower pressure with or without sleeping on sides, activate PAP ramp feature, have blower checked to make sure pressure is set as prescribed and return to sleep center for consideration of auto-adjusting PAP therapy. Patient's mask leaks air. We will ensure the mask is situated properly. Patient can wear protective eye covering during sleep, and the mask can be resized. Patient has intolerance to interface. Patient will loosen mask slightly, ensure mask is situated properly, inspect and replace interface if worn out, use barrier such as moleskin or bandage for irritation at bridge of nose, have a temporary holiday from PAP, resize mask or obtain an oral interface. ResMed Air Sense 11 auto set unit with heated humidifier, supplies, Respironics medium DreamWear full face mask @ 7-20 [id number]. Further titration will be based on clinical response. Provided the patient with a list of local home care stores where positive airway pressure (PAP) units, accoutrement, and services are available. Home care store selection is based on patient's insurance carrier. Patient will setup an appointment with [facility] for supplies and pressure adjustments. A major predictor of success with use of PAP is follow-up with both the respiratory supplier and the treating physician. The respiratory supplier optimally will follow-up within two weeks after starting use while the treating physician optimally will follow-up within 90 days after starting therapy to assess adherence and effectiveness of treatment. The download results can show the treating physician information about adherence to treatment, residual AHI while on treatment and presence of large mask leakage. This information is especially helpful if the patient has residual sleepiness despite treatment. General information on sleep disordered breathing, evaluation of sleep disordered breathing, treatment with PAP therapy, and living with PAP therapy were covered. We discussed with the patient the impact of weight on: Sleep disordered breathing We discussed with the patient the benefit of PAP therapy on: Sleep disordered breathing Rhinitis Educated the patient on sleep hygiene measures. Relaxing rituals to rest easy, understanding foods with positive and negative impact on sleep, creating a peaceful sleep environment, timing of exercise, using herbal sleep aids, and practicing sleep-friendly meditation were covered. To determine how much sleep is needed, the patient will assess where she falls on the spectrum, examine what lifestyle factors such as work schedules and stress are affecting the quality and quantity of sleep. In general, adults need 7-9 hours of sleep. Educated the patient regarding foods that promote sleep. These include but are not limited to cherries, bananas, toast, oatmeal, and warm milk. Educated the patient regarding foods and drinks to avoid before bedtime. These include but are not limited to aged cheese, chocolate, spicy foods, tomato-based sauces, soy, ginseng tea and processed meat. Advocated influenza vaccination annually and pneumonia vaccination in 2031. Advocated weight loss through diet and exercise. Patient's ideal body weight according to height and gender is up to 135 lbs. Encouraged patient to adjust caloric intake to maintain/achieve ideal body weight, emphasizing on fruits, vegetables, whole grains, and fat-free or low-fat products. These include lean meats, poultry, fish, beans, eggs, and nuts and foods that are low in saturated fats, trans-fats, cholesterol, salt (sodium), and glycemic index. Stressed the importance of regular exercise up to the patient's capacity limits. In this case, we recommend 20 min daily walking, 2 days a week of resistance training. Patient to monitor BP daily and bring records to PCP for further management. Follow-up: 3 months, August 2023 Not available 06/04/2023 09:41:42 09/24/2023 09/24/2023 Assessment: Moderate OSAHS, AHI = 22 Plan: The following were reviewed and explained to the patient: [facility] home sleep study 02/19/23 AHI = 22, supine AHI = 46 [facility] titration sleep study 04/17/23 Respironics medium DreamWear full face mask @ 7-20 cmH2O PAP compliance downloaded and interpreted x 20 minutes. Data reviewed and explained to the patient. Average apnea/hypopnea index (AHI) is 2.0 Patient used PAP > 4 hours 81% of the time. PAP is set at 7-20 cmH2O. PAP will be reset at 6-11 cmH2O per patient request. Keep EPR + 1. Keep ramp start @ 4 cmH2O. Keep ramp duration @ 20 minutes. Keep humidifier at level 5. Keep tube temperature at 82 F. Oxygen supplementation: none Patient is benefiting from PAP therapy. Encouraged patient to maintain PAP use more than 70% of the time. Statement of PAP use and benefits will be sent to the home care store. Educated the patient on problems and solutions associated with positive airway pressure (PAP) use. Difficulty tolerating pressure, mask leaks, intolerance of interface, nasal congestion, claustrophobic response, dry mouth, and unintentional mask removal during sleep were covered. Patient has some difficulty tolerating pressure. Patient is advised to practice wearing PAP daily while awake, lower pressure with or without sleeping on sides, activate PAP ramp feature, have blower checked to make sure pressure is set as prescribed and return to sleep center for consideration of auto-adjusting PAP therapy. Patient's mask leaks air. We will ensure the mask is situated properly. Patient can wear protective eye covering during sleep, and the mask can be resized. Patient has intolerance to interface. Patient will loosen mask slightly, ensure mask is situated properly, inspect and replace interface if worn out, use barrier such as moleskin or bandage for irritation at bridge of nose, have a temporary holiday from PAP, resize mask or obtain an oral interface. Provided the patient with a list of local home care stores where positive airway pressure (PAP) units, accoutrement, and services are available. Home care store selection is based on patient's insurance carrier. Patient will setup an appointment with [facility] for supplies and pressure adjustments. A major predictor of success with use of PAP is follow-up with both the respiratory supplier and the treating physician. The download results can show the treating physician information about adherence to treatment, residual AHI while on treatment and presence of large mask leakage. This information is especially helpful if the patient has residual sleepiness despite treatment. General information on sleep disordered breathing, evaluation of sleep disordered breathing, treatment with PAP therapy, and living with PAP therapy were covered. We discussed with the patient the impact of weight on: Sleep disordered breathing We discussed with the patient the benefit of PAP therapy on: Sleep disordered breathing Rhinitis Educated the patient on sleep hygiene measures. Relaxing rituals to rest easy, understanding foods with positive and negative impact on sleep, creating a peaceful sleep environment, timing of exercise, using herbal sleep aids, and practicing sleep-friendly meditation were covered. To determine how much sleep is needed, the patient will assess where she falls on the spectrum, examine what lifestyle factors such as work schedules and stress are affecting the quality and quantity of sleep. In general, adults need 7-9 hours of sleep. Educated the patient regarding foods that promote sleep. These include but are not limited to cherries, bananas, toast, oatmeal, and warm milk. Educated the patient regarding foods and drinks to avoid before bedtime. These include but are not limited to aged cheese, chocolate, spicy foods, tomato-based sauces, soy, ginseng tea and processed meat. Advocated influenza vaccination annually and pneumonia vaccination in 2031. Advocated weight loss through diet and exercise. Patient's ideal body weight according to height and gender is up to 135 lbs. Encouraged patient to adjust caloric intake to maintain/achieve ideal body weight, emphasizing on fruits, vegetables, whole grains, and fat-free or low-fat products. These include lean meats, poultry, fish, beans, eggs, and nuts and foods that are low in saturated fats, trans-fats, cholesterol, salt (sodium), and glycemic index. Stressed the importance of regular exercise up to the patient's capacity limits. In this case, we recommend 20 min daily walking, 2 days a week of resistance training. Patient to monitor BP daily and bring records to PCP for further management. Follow-up: 1 year, August 2024 Not available 09/24/2023 10:04:11 09/22/2024 09/22/2024 Assessment: Moderate OSAHS, AHI = 22 Plan: The following were reviewed and explained to the patient: [facility] home sleep study 02/19/23 AHI = 22, supine AHI = 46 [facility] titration sleep study 04/17/23 Respironics medium DreamWear full face mask @ 7-20 cmH2O PAP compliance downloaded and interpreted x 20 minutes. Data reviewed and explained to the patient. Average apnea/hypopnea index (AHI) is 0.8. Patient used PAP > 4 hours 88% of the time. PAP is set at 6-11 cmH2O. PAP will be reset at 7-11 cmH2O. Keep EPR off. Keep ramp start @ 4 cmH2O. Keep ramp duration @ 20 minutes. Keep humidifier at automatic mode. Keep tube temperature at 82 F. Oxygen supplementation: none Patient is benefiting from PAP therapy. Encouraged patient to maintain PAP use more than 70% of the time. Statement of PAP use and benefits will be sent to the home care store. Educated the patient on problems and solutions associated with positive airway pressure (PAP) use. Difficulty tolerating pressure, mask leaks, intolerance of interface, nasal congestion, claustrophobic response, dry mouth, and unintentional mask removal during sleep were covered. Patient has some difficulty tolerating pressure. Patient is advised to practice wearing PAP daily while awake, lower pressure with or without sleeping on sides, activate PAP ramp feature, have blower checked to make sure pressure is set as prescribed and return to sleep center for consideration of auto-adjusting PAP therapy. Patient's mask leaks air. We will ensure the mask is situated properly. Patient can wear protective eye covering during sleep, and the mask can be resized. Patient has intolerance to interface. Patient will loosen mask slightly, ensure mask is situated properly, inspect and replace interface if worn out, use barrier such as moleskin or bandage for irritation at bridge of nose, have a temporary holiday from PAP, resize mask or obtain an oral interface. Provided the patient with a list of local home care stores where positive airway pressure (PAP) units, accoutrement, and services are available. Home care store selection is based on patient's insurance carrier. Patient will setup an appointment with [facility] for supplies and pressure adjustments. A major predictor of success with use of PAP is follow-up with both the respiratory supplier and the treating physician. The download results can show the treating physician information about adherence to treatment, residual AHI while on treatment and presence of large mask leakage. This information is especially helpful if the patient has residual sleepiness despite treatment. General information on sleep disordered breathing, evaluation of sleep disordered breathing, treatment with PAP therapy, and living with PAP therapy were covered. We discussed with the patient the impact of weight on: Sleep disordered breathing We discussed with the patient the benefit of PAP therapy on: Sleep disordered breathing Rhinitis Educated the patient on sleep hygiene measures. Relaxing rituals to rest easy, understanding foods with positive and negative impact on sleep, creating a peaceful sleep environment, timing of exercise, using herbal sleep aids, and practicing sleep-friendly meditation were covered. To determine how much sleep is needed, the patient will assess where she falls on the spectrum, examine what lifestyle factors such as work schedules and stress are affecting the quality and quantity of sleep. In general, adults need 7-9 hours of sleep. Educated the patient regarding foods that promote sleep. These include but are not limited to cherries, bananas, toast, oatmeal, and warm milk. Educated the patient regarding foods and drinks to avoid before bedtime. These include but are not limited to aged cheese, chocolate, spicy foods, tomato-based sauces, soy, ginseng tea and processed meat. Advocated influenza vaccination annually and pneumonia vaccination in 2031. Advocated weight loss through diet and exercise. Patient's ideal body weight according to height and gender is up to 135 lbs. Encouraged patient to adjust caloric intake to maintain/achieve ideal body weight, emphasizing on fruits, vegetables, whole grains, and fat-free or low-fat products. These include lean meats, poultry, fish, beans, eggs, and nuts and foods that are low in saturated fats, trans-fats, cholesterol, salt (sodium), and glycemic index. Stressed the importance of regular exercise up to the patient's capacity limits. In this case, we recommend 20 min daily walking, 2 days a week of resistance training. Patient to monitor BP daily and bring records to PCP for further management. Follow-up: 1 year, August 2025 [email or web address] Not available 09/22/2024 10:14:17 Plan of Treatment Reminders Order Date Submit Date Provider Last Modified By Organization Details Last Modified Time Details Appointments Any 15 2025 09:00A M Braydon Domingo MD Not available Not available Not available Lab None recorded. Referral None recorded. Procedures None recorded. Surgeries None recorded. Imaging polysomno gram, titration study - approved [id number]- [id number] 02/26/23- 05/29/222022 023 [email or web address] 5 [facility], [address] [place], [address], 05/02/2023 14:54:00 Medication Orders None recorded. Patient TargetsNo targets recorded. Patient InstructionsNo instructions recorded. Reason for Referral None Reported. Results Created Date Observation Date Name Description Value Unit Range Abnormal Flag Note LastModifiedBy Organization Detail LastModifiedTime 02/24/2002/19/2023 home sleep study No observ ation record ed. [facility] Not Available 2022 18:14:12 05/02/2004/17/2023 polys omnog jin, titra tion study No observ ation record ed. [facility] [address] [place], [address], 05/02/2023 15:10:20 Result Notes None recorded. Problems Name Problem SNOMED Code Status Onset Date Resolution Date Notes Provider Name and Address Organization Details Recorded Time Menorrhagia 095270477 Active Not Available [facility] 3 15:12:56 Obstructive sleep apnea syndrome 87782367 Active 2022 Braydon Domingo MD [address] [facility] [address], [place], [address] , [place] [employer] 3 09:21:16 Notes:Medical History: Urtic aria Rhinitis with postnasal drip Bruxism TMJ syndrome Early REM onset Moderate OSAHS, AHI = 22, 02/19/23, on autoCPAP c/o IVRC Hypothyroidism Iron deficiency Vit D deficiency Procedure History: None 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 Procedures Surgical History None recorded. Imaging Results Imaging Date Name Status LastModified by Organiz ation Details LastModified Time 02/19/2023 home sleep study completed [facility] Information not available 02/23/2023 18:14:12 04/17/2023 polysomnogram, titration study completed [facility] [address] [place], [address], 05/02/2023 15:10:20 Procedure Notes None recorded. Medical Equipment None Reported. Allergies Allergen ID Allergen Name Allergen Category Reaction Reaction Severity Criticality Documentation Date Start Date Code Code System Note Provider Name and Address Organization Details Recorded Time 60923 Product containin g penicilli n (product) medicatio n hives Not available Not available 07/26/2022 57430 8001 SNOMED Not Available [facility] 15:13:49 Medications Name Sig Start Date Stop Date Status Note LastModified by Organization Details LastModified Time metformin 500 mg tablet 02/23 completed Not Available Not Available Not Available ketoconaz ole 200 mg tablet TAKE 1 TABLET BY MOUTH ONCE DAILY active Not Available Not Available No t Available azithromy nirmala 250 mg tablet TAKE 2 TABLETS BY MOUTH ON DAY 1, AND THEN TAKE 1 TABLET BY MOUTH ONCE A DAY ON DAY 2 THROUGH DAY 5 09/23 completed Not Available Not Available Not Available Cytotec 200 mcg tablet Take 2 tablets by oral route at bedtime for 1 day. 06/19 completed Not Available Not Available Not Available valacyclo vir 1 gram tablet TAKE TWO TABLETS BY MOUTH TWICE DAILY FOR ONE DAY NEEEDED FOR COLD SORES active Not Available Not Available No t Available hydrocodo ne 5 mg-acetam inophen 325 mg tablet active Not Available Not Available Not Available phenazopy ridine 200 mg tablet TAKE 1 TABLET BY MOUTH EVERY 6 HOURS NEEDED FOR PAIN 02/26 completed Not Available Not Available Not Available clobetaso l 0.05 % topical cream APPLY CREAM TOPICALL Y TO AFFECTED AREA TWICE DAILY ON HANDS NEEDED 05/01 completed Not Available Not Available Not Available clindamyc in HCl 150 mg capsule TAKE 1 CAPSULE BY MOUTH EVERY 6 HOURS 09/22 completed Not Available Not Available Not Available Diflucan 150 mg tablet Take 1 tablet by oral route. 09/28 /2023 completed Not Available Not Available Not Available acetamino phen 300 mg-codein e 30 mg tablet TAKE 1 TO 2 TABLETS BY MOUTH EVERY 4 HOURS NEEDED FOR PAIN. 09/22 completed Not Available Not Available Not Available ciproflox acin 500 mg tablet TAKE 1 TABLET BY MOUTH TWICE DAILY 06/04 completed Not Available Not Available Not Available ketorolac 10 mg tablet TAKE 2 TABLETS BY MOUTH FOR 1ST DOSE THEN 1 TAB EVERY 6 HOURS NEEDED FOR PAIN FOR 5 DAYS 02/26 completed Not Available Not Available Not Available Macrobid 100 mg capsule Take 1 capsule every 12 hours by oral route. 05/01 completed Not Available Not Available Not Available Celebrex 200 mg capsule 02/23 completed Not Available Not Available Not Available Denavir 1 % topical cream APPLY TO THE AFFECTED AREA(S) BY TOPICAL ROUTE EVERY 2 HOURS DURING WAKING HOURS FOR 4 DAYS 09/22 completed Not Available Not Available Not Available benzonata te 100 mg capsule TAKE 1 TO 2 CAPSULES BY MOUTH EVERY 8 HOURS NEEDED FOR COUGH 02/26 completed Not Available Not Available Not Available clotrimaz ole-betam ethasone 1 %-0.05 % topical cream APPLY CREAM TOPICALL Y TO THE AFFECTED AREA ONCE A WEEK NEEDED. 09/22 completed Not Available Not Available Not Available betametha sone dipropion ate 0.05 % topical cream APPLY CREAM TOPICALL Y TO HANDS TWICE DAILY NEEDED. 09/22 completed Not Available Not Available Not Available omeprazol e 20 mg capsule,d elayed release 02/23 completed Not Available Not Available Not Available hydrocort isone 10 mg tablet TAKE 1 TABLET BY MOUTH ONCE DAILY IN THE MORNING. CAN TAKE 1/2 TABLET AT NOON IF NEEDED. 02/26 completed Not Available Not Available Not Available clobetaso l 0.05 % topical ointment APPLY OINTMENT TOPICALL Y TO AFFECTED AREAS OF HANDS 1-2 TIMES DAILY. USE FOR NO MORE THAN TWO CONSECUT CORNELIUS WEEKS, TAKE A SMALL BREAK AND RESUME NEEDED FOR FLARES. AVOID FACE, GROIN AND AXILLA. 09/22 completed Not Available Not Available Not Available ibuprofen 600 mg tablet TAKE 1 TABLET BY MOUTH EVERY 6 HOURS NEEDED WITH FOOD FOR PAIN active Not Available Not Available No t Available estradiol 0.01% (0.1 mg/gram) vaginal cream INSERT ONE GRAM INTO VAGINA AT BEDTIME TWICE A WEEK. 09/23 completed Not Available Not Available Not Available cefdinir 300 mg capsule TAKE 1 CAPSULE BY MOUTH EVERY 12 HOURS 06/04 completed Not Available Not Available Not Available progester one micronize d 100 mg capsule TAKE 1 CAPSULE BY MOUTH ONCE DAILY AT BEDTIME FOR 3 WEEKS, THEN TAKE 1 WEEK OFF active Not Available Not Available No t Available cyclobenz aprine 5 mg tablet 02/22 completed Not Available Not Available Not Available DHEA 5 mg nightly 05/01 completed Not Available Not Available Not Available Loestrin 24 Fe 1 mg-20 mcg (24)/75 mg (4) tablet 09/23 completed Not Available Not Available Not Available levocetir izine 5 mg tablet 02/23 completed Not Available Not Available Not Available [facility] 65 mg tablet 02/26 completed Not Available Not Available Not Available Zyrtec 10 mg capsule Take 0.5 capsules by oral route. active Not Available Not Available No t Available melatonin 5 mg capsule Take by oral route. active Not Available Not Available No t Available sodium,po tassium,m ag sulfates 17.5 gram-3.13 gram-1.6 gram oral soln TAKE DIRECTED PER THE WRITTEN INSTRUCT IONS THAT WERE MAILED TO YOU. 09/22 completed Not Available Not Available Not Available STRAWB[facility]Y [facility]OWER Thyroid 30 mg tablet TAKE 1 TABLET BY MOUTH IN THE MORNING AND IN THE EVENING ON AN EMPTY STOMACH 30 MINUTES active Not Available Not Available No t Available STRAWB[facility] Thyroid 60 mg tablet TAKE 1 TABLET BY MOUTH ONCE DAILY IN THE MORNING ON EMPTY STOMACH. DO NOT EAT FOR 30 MINUTES AFTER TAKING. 09/23 completed Not Available Not Available Not Available Hayde 0.1 mg/24 hr transderm al patch APPLY 1 PATCH TOPICALL Y TWICE A WEEK; NO DAYS OFF 09/23 completed Not Available Not Available Not Available Hayde 0.075 mg/24 hr transderm al patch APPLY 1 PATCH TOPICALL Y TWICE PER WEEK, CONTINUO US. APPLY TO COVERED AREAS AND ROTATE SITES active Not Available Not Available No t Available testoster one 100 mg implant pellet Take by implanta tion route. active insterte d every 4 months Not Available Not Available Not Available Vitals Date Recorded Body weight Body mass index (BMI) Body height Body temperature Heart rate Oxygen saturation Oxygen saturation in Arterial blood by Pulse oximetry Systolic blood pressure Diastolic blood pressure Provider Name and Address Organization Details Last Updated DateTime 3 68060.9 3 g 23.3 kg/m2 165.1 cm 97.8 [degF] 76 /min 98 % 98 % 110 mm[Hg] 64 mm[Hg] Janessa Coppola MA [employer] [facility] [place] 3 09:30:10 Date Recorded Heart rate Respiratory rate Provider N carlitos and Address Organization Details Last Updated DateTime 02/26/2023 76 /min 15 /min Braydon Domingo MD [address] [facility], [address], [place], [address], [place] [employer] [facility] [place] 02/26/2023 09:52:37 Date Recorded Body height Body mass index (BMI) Body weight Body temperature Heart rate Oxygen saturation Oxygen saturation in Arterial blood by Pulse oximetry Systolic blood pressure Diastolic blood pressure Provider Name and Address Organization Details Last Updated DateTime 4 165.1 cm 23 kg/m2 80502.7 5 g 98.1 [degF] 77 /min 98 % 98 % 110 mm[Hg] 66 mm[Hg] Janessa Coppola MA [employer] [facility] [place] 4 09:23:23 Date Recorded Heart rate Respiratory rate Provider N carlitos and Address Organization Details Last Updated DateTime 06/04/2023 77 /min 15 /min Braydon Domingo MD [address] [facility], [address], [place], [address], [place] [employer] [facility] [place] 06/04/2023 09:43:46 Date Recorded Body height Body mass index (BMI) Body weight Heart rate Oxygen saturation Oxygen saturation in Arterial blood by Pulse oximetry Systolic blood pressure Diastolic blood pressure Provider Name and Address Organization Details Last Updated DateTime 4 165.1 cm 24 kg/m2 51914.3 g 77 /min 99 % 99 % 118 mm[Hg] 70 mm[Hg] Alberto José CMA [place] [employer] [facility] [place] 4 09:46:52 Date Recorded Body temperature Heart rate Respiratory rate Provider Name and Address Organization Details Last Updated DateTime 09/24/2023 97.5 [degF] 77 /min 15 /min Braydon Domingo MD [address], [address], [place], [address], [employer] 09/24/2023 10:02:33 Date Recorded Body height Body mass index (BMI) Body weight Body temperature Heart rate Oxygen saturation Oxygen saturation in Arterial blood by Pulse oximetry Systolic blood pressure Diastolic blood pressure Provider Name and Address Organization Details Last Updated DateTime 165.1 cm 24.8 kg/m2 65801.2 6 g 98 [degF] 83 /min 98 % 98 % 118 mm[Hg] 70 mm[Hg] Janessa Coppola MA [employer] [facility] [place] 10:00:57 Date Recorded Heart rate Respiratory rate Provider N carlitos and Address Organization Details Last Updated DateTime 09/22/2024 83 /min 14 /min Braydon Domingo MD [address], [address], [place], [address], [email or web address] 09/22/2024 10:21:32 Social History Question Answer Notes LastModified by Organizat ion Details LastModified Time Tobacco Smoking Status Former Smoker Shilpi Reyes, PATRICIA olvera, [email or web address] [facility] [place] 06/04/2023 09:11:33 What Is Your Level Of Caffeine Consumption? Occasional Information not available 02/26/2023 In The 14 Days Before Symptom Onset, Have You Had Close Contact With A Laboratory-confir med COVID-19 While That Case Was Ill? No [email or web address] Information not available 06/04/2023 In The 14 Days Before Symptom Onset, Have You Had Close Contact With A Person Who Is Under Investigation For COVID-19 While That Person Was Ill? No Information not available 06/04/2023 What Type Of Diet Are You Following? GLUTENFREE Mostly Information not available 02/26/2023 Do You Have An Electrostatic Air Filter? No [email or web address] Information not available 06/04/2023 When Did You Quit Smoking? 16+yearssincel lacho Smoked For A Year 40 Years Ago [email or web address] Information not available 06/04/2023 Do You Have A Humidifier? Yes Information not available 06/04/2023 Do You Have Moisture Problems In Your Home? No [email or web address] Information not available 06/04/2023 What Was The Date Of Your Most Recent Tobacco Screening? 09/22/2024 Information not available 09/22/2024 Do You Have Any Pets? Yes Information not available 06/04/2023 Do You Use Your Seat Belt Or Car Seat Routinely? Yes [email or web address] Information not available 06/04/2023 Do You Have Smoke And Carbon Monoxide Detectors In Your Home? Yes [email or web address] Information not available 06/04/2023 Are You Passively Exposed To Smoke? No [email or web address] Information no t available 06/04/2023 Do You Use Sunscreen Routinely? Yes [email or web address] Information not available 06/04/2023 Have You Recently Traveled Abroad? No [email or web address] Information not available 06/04/2023 Do You Have Any Dietary Restrictions? No [email or web address] Information not available 06/04/2023 Sex: Unknown Functional Status Question Answer Note LastModified by Organizat ion Details LastModified Time Do you use any illicit or recreational drugs? No [email or web address] Information not available 06/04/2023 What is your level of alcohol consumption? Occasional Information not available 02/26/2023 Are you currently employed? Yes Information not available 06/04/2023 Have you been exposed to chemicals or toxins? 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 Moderate Information not available 02/26/2023 Mental Status Question Answer Note LastModified by Organization D etails LastModified Time Do you feel stressed (tense, restless, nervous, or anxious, or unable to sleep at night)? [id number] [email or web address] Information not available 06/04/2023 Family History Relationship Description Onset Age of this Age Resolved Age Notes LastModified by Organization Details LastModified Time Maternal Grandfather Cerebrovascu lar accident [email or web address] Not available 0 09/22/2024 09:48:04 Paternal Grandmother Cerebrovascu lar accident [email or web address] Not available 0 09/22/2024 09:48:04 Paternal Grandmother Malignant neoplasm of ovary [email or web address] Not available 08/27 09:48:04 Paternal Grandfather Myocardial infarction Not available 02/23 17:15:26 Father Malignant neoplasm of prostate [email or web address] Not available 08/27 09:48:04 Paternal Uncle Malignant tumor of pancreas [email or web address] Not available 08/27 09:48:04 Paternal Aunt Malignant neoplasm of ovary [email or web address] Not available 08/27 09:48:04 Brother Obstructive sleep apnea syndrome [email or web address] Not available 08/27 09:48:04 Medical History No medical history recorded. Gynecological HistoryNo gynecological history recorded. Obstetrics History GPAL:G 0 P 0 0 0 0 Past Encounters Encounter ID Performer Location Encounter Start Date Encounter Closed Date Diagnosis/Indication Diagnosis SNOMED-CT Code Diagnosis ICD10 Code Diagnosis Note [id number] Braydon Domingo MD [place] [address] 02/26/2023 09:02:33 03/01/2023 08:40:56 Obstructive sleep apnea syndrome 81471439 G47.33 G47.30 G47.36 G47.61 [id number] Braydon Domingo MD [place] [address] 0 06/04/2023 09:08:33 06/05/2023 08:59:52 Obstructive sleep apnea syndrome 52333300 G47.33 [id number] Braydon Domingo MD [facility] [place] [id number] 09/24/2023 09:31:43 09/24/2023 10:58:37 Obstructive sleep apnea syndrome 84421375 G47.33 [id number] Braydon Domingo MD [facility] [id number] 09/22/2024 09:45:31 09/23/2024 10:50:49 Obstructive sleep apnea syndrome 09393498 G47.33 Health Concerns Section Related Observation LastModified by Organization Detai ls LastModified Time None Recorded Concern Status LastModified by Organization Details LastModified Time None Recorded Advance Directives Directive None Recorded Payers Encounter Date Sequence Insurance Name Policy Number Policy Teague Covered Member ID Teague Member ID Guarantor Name 02/26/2023 1 [facility] [id number] Basil Sargent Sponeman III [id number] Jayne Sargent Sponeman 06/04/2023 1 [employer] [id number] Basil Sargent Sponeman III [id number] Jayne Sargent Sponeman 09/24/2023 1 [employer] [id number] Basil Sargent Sponeman III [id number] Jayne Sargent Sponeman 09/22/2024 1 UMR [id number] Basil Sargent Sponeman III [id number] Jayne Sargent Sponeman Notes Date Note Type Note Provider Name and Address Organization Details Recorded Time 02/26/2023 text/html Primary care/Ref erring provider: DARRELL Light; Mona Eubanks MD During the [facility] home sleep study on 02/19/23, AHI = 22, supine AHI = 46. At home, the patient sleeps from 9:30 pm to 6 am and wakes up with an alarm. Snoring: heavy, since . Snorting: no Choking: no Coughing: no Gasping: yes Gagging: no Sighing: no Witnessed apnea: yes Twitching or jerking of leg(s), arm(s), body, head: yes Teeth grinding: yes Teeth clenching: yes Sleeptalking: no Sleepwalking: no Sleep crying: no Bedwetting: no Tongue/lip/gum/cheek biting: no Sleeping with open mouth: yes Sleep paralysis: no Hypnagogic hallucinations: no Hypnopompic hallucinations: no Vivid dreams: no Difficulty with sleep onset: no Difficulty with sleep maintenance: yes Sleep interruptions: nocturia x 1 Patient wakes up with: fatigue, xerostomia, sore throat, jaw pain, cognitive impairment, dexterity impairment Daytime cataplexy: no Morning hypersomnolence: yes Afternoon hypersomnolence: yes Caffeine sources in diet: chocolate 1 candy bar per week Associated medical and psychiatric conditions: Congestive heart failure: no Coronary artery disease: no Myocardial infarction: no Hypertension: no Stroke: no Bronchial asthma: no Chronic obstructive pulmonary disease: no Depression: no Bipolar disorder: no Anxiety: no Panic disorder: no Posttraumatic stress disorder: no Attention deficit and hyperactivity disorder: no Obsessive Compulsive disorder: no Schizophrenia: no Schizoaffective disorder: no Personality disorder: no Chronic analgesic use: no Chronic sedative/hypnotic use: yes melatonin EPWORTH SLEEPINESS SCALE (ESS) CHANCE OF DOZING SCORE 0 = would never doze 1 = slight chance of dozing 2 = moderate chance of dozing 3 = high chance of dozing SITUATION AND CHANCE OF DOZING Sitting and reading - 2 Watching television - 3 Sitting inactive in a public place (e.g. a theater or meeting) - 2 As a passenger in a car for an hour without a break - 3 Lying down to rest in the afternoon when circumstances permit - 3 Sitting and talking to someone - 0 Sitting quietly after lunch without alcohol - 3 In a car, while stopped for a few minutes in the traffic - 1 TOTAL SCORE 17 Subjectively, patient has a high chance of dozing. Braydon Domingo MD [address] [place] [address], [address], [place] [facility] [employer] 02/26/2023 09:52:47 06/04/2023 text/html Primary care/Ref erring provider: Natalie Darling, MADDIE-C; Mona Eubanks MD During the [facility] home sleep study on 02/19/23, AHI = 22, supine AHI = 46. During the [facility] titration sleep study on 04/17/23, the patient uses a ResMed AirSense 11 autoset unit with heated humidification. The patient does not need the ramp to start low and go up slowly on the pressure. There is no xerostomia in a.m. There is no hose/mask condensation with water. The patient wears a Respironics medium DreamWear full face mask without chin strap. There is no claustrophobia, no nostril/nose bridge irritation, no facial rash, no facial numbness, no nosebleeding. The patient feels more refreshed upon waking and daytime alertness is improved. Energy levels are sustained for the remainder of the day. At home, the patient sleeps from 9:30 pm to 6 am and wakes up with an alarm. Snoring: heavy, since .Snorting: noChoking: noCoughing: noGasping: yesGagging: noSighing: noWitnessed apnea: yesTwitching or jerking of leg(s), arm(s), body, head: yesTeeth grinding: yesTeeth clenching: yesSleeptalking: noSleepwalking: noSleep crying: noBedwetting: noTongue/lip/gum/cheek biting: noSleeping with open mouth: yesSleep paralysis: noHypnagogic hallucinations: noHypnopompic hallucinations: noVivid dreams: noDifficulty with sleep onset: noDifficulty with sleep maintenance: yesSleep interruptions: nocturia x 1Patient wakes up with: fatigue, xerostomia, sore throat, jaw pain, cognitive impairment, dexterity impairmentDaytime cataplexy: noMorning hypersomnolence: yesAfternoon hypersomnolence: yesCaffeine sources in diet: chocolate 1 candy bar per week Associated medical and psychiatric conditions:Congestive heart failure: noCoronary artery disease: noMyocardial infarction: noHypertension: noStroke: noBronchial asthma: noChronic obstructive pulmonary disease: noDepression: noBipolar disorder: noAnxiety: noPanic disorder: noPosttraumatic stress disorder: noAttention deficit and hyperactivity disorder: noObsessive Compulsive disorder: noSchizophrenia: noSchizoaffective disorder: noPersonality disorder: noChronic analgesic use: noChronic sedative/hypnotic use: yes melatonin EPWORTH SLEEPINESS SCALE (ESS) CHANCE OF DOZING SCORE0 = would never doze1 = slight chance of dozing2 = moderate chance of dozing3 = high chance of dozing SITUATION AND CHANCE OF DOZINGSitting and reading - 2Watching television - 2Sitting inactive in a public place (e.g. a theater or meeting) - 1As a passenger in a car for an hour without a break - 3Lying down to rest in the afternoon when circumstances permit - 3Sitting and talking to someone - 0Sitting quietly after lunch without alcohol - 2In a car, while stopped for a few minutes in the traffic - 1TOTAL SCORE 14Subjectively, patient has a moderate chance of dozing. Braydon Domingo MD [address] [place] [address], [place] [address], [place], [address], [place] [facility] 06/04/2023 09:52:51 09/24/2023 text/html Primary care/Ref erring provider: Natalie Darling, MADDIE-C; Mona Eubanks MD During the [facility] home sleep study on 02/19/23, AHI = 22, supine AHI = 46. At home since 08/06/23, the patient uses a ResMed AirSense 11 autoset unit with heated humidification. The patient does not need the ramp to start low and go up slowly on the pressure. There is no xerostomia in a.m. There is no hose/mask condensation with water. The patient wears a Respironics medium DreamWear full face mask to a ResMed medium AirFit N30i nasal mask without chin strap. There is no claustrophobia, no nostril/nose bridge irritation, no facial rash, no facial numbness, no nosebleeding. The patient feels more refreshed upon waking and daytime alertness is improved. Energy levels are sustained for the remainder of the day. At home, the patient sleeps from 9:30 pm to 6 am and wakes up with an alarm. Snoring: heavy, since .Snorting: noChoking: noCoughing: noGasping: yesGagging: noSighing: noWitnessed apnea: yesTwitching or jerking of leg(s), arm(s), body, head: yesTeeth grinding: yesTeeth clenching: yesSleeptalking: noSleepwalking: noSleep crying: noBedwetting: noTongue/lip/gum/cheek biting: noSleeping with open mouth: yesSleep paralysis: noHypnagogic hallucinations: noHypnopompic hallucinations: noVivid dreams: noDifficulty with sleep onset: noDifficulty with sleep maintenance: yesSleep interruptions: nocturia x 1Patient wakes up with: fatigue, xerostomia, sore throat, jaw pain, cognitive impairment, dexterity impairmentDaytime cataplexy: noMorning hypersomnolence: yesAfternoon hypersomnolence: yesCaffeine sources in diet: chocolate 1 candy bar per week Associated medical and psychiatric conditions:Congestive heart failure: noCoronary artery disease: noMyocardial infarction: noHypertension: noStroke: noBronchial asthma: noChronic obstructive pulmonary disease: noDepression: noBipolar disorder: noAnxiety: noPanic disorder: noPosttraumatic stress disorder: noAttention deficit and hyperactivity disorder: noObsessive Compulsive disorder: noSchizophrenia: noSchizoaffective disorder: noPersonality disorder: noChronic analgesic use: noChronic sedative/hypnotic use: yes melatonin EPWORTH SLEEPINESS SCALE (ESS) CHANCE OF DOZING SCORE0 = would never doze1 = slight chance of dozing2 = moderate chance of dozing3 = high chance of dozing SITUATION AND CHANCE OF DOZINGSitting and reading - 1Watching television - 2Sitting inactive in a public place (e.g. a theater or meeting) - 1As a passenger in a car for an hour without a break - 2Lying down to rest in the afternoon when circumstances permit - 3Sitting and talking to someone - 0Sitting quietly after lunch without alcohol - 2In a car, while stopped for a few minutes in the traffic - 1TOTAL SCORE 12Subjectively, patient has a moderate chance of dozing. Braydon Domingo MD [address] [place] [address], [address], [facility] 09/24/2023 10:04:24 09/22/2024 text/html Primary care/Ref erring provider: Naatlie Darling, MIKEYC; Mona Eubanks MD During the [facility] home sleep study on 02/19/23, AHI = 22, supine AHI = 46. At home since 09/24/23, the patient uses a ResMed AirSense 11 autoset unit with heated humidification. The patient does not need the ramp to start low and go up slowly on the pressure. There is no xerostomia in a.m. There is no hose/mask condensation with water. The patient wears a Respironics medium DreamWear full face mask to a ResMed medium AirFit N30i nasal mask without chin strap. There is no claustrophobia, no nostril/nose bridge irritation, no facial rash, no facial numbness, no nosebleeding. The patient feels more refreshed upon waking and daytime alertness is improved. Energy levels are sustained for the remainder of the day. At home, the patient sleeps from 9:30 pm to 6 am and wakes up with an alarm. Snoring: heavy, since .Snorting: noChoking: noCoughing: noGasping: yesGagging: noSighing: noWitnessed apnea: yesTwitching or jerking of leg(s), arm(s), body, head: yesTeeth grinding: yesTeeth clenching: yesSleeptalking: noSleepwalking: noSleep crying: noBedwetting: noTongue/lip/gum/cheek biting: noSleeping with open mouth: yesSleep paralysis: noHypnagogic hallucinations: noHypnopompic hallucinations: noVivid dreams: noDifficulty with sleep onset: noDifficulty with sleep maintenance: yesSleep interruptions: nocturia x 1Patient wakes up with: fatigue, xerostomia, sore throat, jaw pain, cognitive impairment, dexterity impairmentDaytime cataplexy: noMorning hypersomnolence: yesAfternoon hypersomnolence: yesCaffeine sources in diet: chocolate 1 candy bar per week Associated medical and psychiatric conditions:Congestive heart failure: noCoronary artery disease: noMyocardial infarction: noHypertension: noStroke: noBronchial asthma: noChronic obstructive pulmonary disease: noDepression: noBipolar disorder: noAnxiety: noPanic disorder: noPosttraumatic stress disorder: noAttention deficit and hyperactivity disorder: noObsessive Compulsive disorder: noSchizophrenia: noSchizoaffective disorder: noPersonality disorder: noChronic analgesic use: noChronic sedative/hypnotic use: yes melatonin EPWORTH SLEEPINESS SCALE (ESS) CHANCE OF DOZING SCORE0 = would never doze1 = slight chance of dozing2 = moderate chance of dozing3 = high chance of dozing SITUATION AND CHANCE OF DOZINGSitting and reading - 1Watching television - 1Sitting inactive in a public place (e.g. a theater or meeting) - 0As a passenger in a car for an hour without a break - 2Lying down to rest in the afternoon when circumstances permit - 2Sitting and talking to someone - 0Sitting quietly after lunch without alcohol - 1In a car, while stopped for a few minutes in the traffic - 1TOTAL SCORE 8Subjectively, patient has a slight chance of dozing. Braydon Domingo MD [address] [place] [address], [place], [address], [place] [facility] [employer] 09/22/2024 10:23:22 OBGyn Episode No OBEpisode recorded.
== END 2024-10-06 14:16 | disposition home or self-care (01) ==
PROVIDERS: PCP Family Medicine; Visit Provider Obstetrics & Gynecology Gynecology
DX: Z12.31 Encounter for screening mammogram for malignant neoplasm of breast (principal); M85.89 Other specified disorders of bone density and structure, multiple sites; Z13.820 Encounter for screening for osteoporosis
CPT/HCPCS: 77063; 77067; 77080